=== PATIENT | male | born 1935 | race Caucasian/White ===

== ENCOUNTER 2022-12-15 11:45 | Outpatient (CLI) | payer MEDICARE, BC | END 2022-12-15 11:46 | LOC: PET 11:45 | PROVIDERS: ATTEND Student in an Organized Health Care Education/Training Program | DX: K11.8 Other diseases of salivary glands (principal); R91.1 Solitary pulmonary nodule | CPT/HCPCS: 78815; A9552; 80048; 85014; 85018; 93005; 93010 ==

== ENCOUNTER 2022-12-15 14:19 | Outpatient (CLI) | payer MEDICARE, BC ==
[2022-12-15 15:20] LABS: Hematocrit 43.1 % (38.8-50.0); Hemoglobin 14.2 g/dL (13.5-17.5)
[2022-12-15 17:34] LABS: Anion Gap 14 mmol/L (10-20); BUN (Urea Nitrogen) 18 mg/dL (8.4-25.7); Calc. Creatinine Clearance 0 mL/min (70-130); Carbon Dioxide 30 mmol/L (23-31); Chloride 103 mmol/L (98-107); Estimated GFR 55; Glucose 101 mg/dL (83-110); Potassium 4.3 mmol/L (3.5-5.1); Sodium 143 mmol/L (136-145)
== END 2022-12-15 14:20 | disposition home or self-care (01) ==
LOC: LABBT 14:19
PROVIDERS: ATTEND Student in an Organized Health Care Education/Training Program
DX: Z01.818 Encounter for other preprocedural examination (principal)
CPT/HCPCS: 80048; 85014; 85018; 93005; 93010

== ENCOUNTER 2022-12-22 09:39 | Day surgery (SDC) | payer MEDICARE, BC ==
[2022-12-15 14:55] VITALS: BMI 23.4
[2022-12-22] MEDS ORDERED: Phenylephrine 10 MG/ML VIAL ONE (09:48)
[2022-12-22] MEDS ORDERED: fentaNYL PF 100 MCG/2 ML SYRINGE ONE (09:48)
[2022-12-22] MEDS ORDERED: Acetaminophen 500 MG TAB ONE (11:10)
[2022-12-22] MEDS ORDERED: Lidocaine 1% PF 5 ML VIAL ONE (12:10)
[2022-12-22] MEDS ORDERED: Ondansetron PF 4 MG/2 ML Vial ONE (12:10)
[2022-12-22] MEDS ORDERED: PROPOFOL 200 MG/20 ML VIAL ONE (12:10)
[2022-12-22] MEDS ORDERED: Rocuronium Bromide 10 MG/ML (10ML VIAL) ONE (12:10)
[2022-12-22] MEDS ORDERED: Dexamethasone 20 MG/5 ML VIAL ONE (12:10)
[2022-12-22] MEDS ORDERED: SUGAMMADEX SODIUM 200 MG/2 ML VIAL ONE (13:08)
[2022-12-22] MEDS ORDERED: fentaNYL 50 mcg/mL 1 mL Vial ONE (13:47)
== END 2022-12-22 14:53 | disposition home or self-care (01) ==
LOC: SDC 09:39
PROVIDERS: ATTEND Student in an Organized Health Care Education/Training Program
PROC: 0CBJ3ZX Excision of Minor Salivary Gland, Percutaneous Approach, Diagnostic (ICD-10-PCS; principal; 2022-12-22)
DX: K11.8 Other diseases of salivary glands (principal); R22.0 Localized swelling, mass and lump, head; R29.810 Facial weakness
CPT/HCPCS: 42400; J3010; 88184; 88185; 88189; 88304; 88307; 88341; 88342; J1100; J2370; J2405; J2704